=== PATIENT | female | born 1985 | race Caucasian/White ===

== ENCOUNTER 2017-05-10 18:37 | Emergency (ER) | payer MEDICAID ==
[~2017-05-10] VITALS: Ht 154.9 cm; Wt 68.0 kg
[2017-05-10 18:48] VITALS: Ht 154.9 cm; Wt 68.0 kg
[2017-05-10 22:53] VITALS: BP 124/74
== END 2017-05-10 22:53 | disposition home or self-care (01) ==
LOC: ED 18:37
DX: S39.012A Strain of muscle, fascia and tendon of lower back, initial encounter (principal); G43.909 Migraine, unspecified, not intractable, without status migrainosus; W01.0XXA Fall on same level from slipping, tripping and stumbling without subsequent striking against object, initial encounter; Y93.89 Activity, other specified; Y92.89 Other specified places as the place of occurrence of the external cause; Y99.8 Other external cause status
CPT/HCPCS: J1885

== ENCOUNTER 2018-04-20 08:33 | Emergency (ER) | payer MEDICAID ==
[~2018-04-20] VITALS: Ht 165.1 cm; Wt 70.8 kg
[2018-04-20 08:44] VITALS: Ht 165.1 cm; Wt 70.8 kg
[2018-04-20 09:30] VITALS: BP 113/80
== END 2018-04-20 09:30 | disposition home or self-care (01) ==
LOC: ED 08:33
DX: J11.1 Influenza due to unidentified influenza virus with other respiratory manifestations (principal); G43.909 Migraine, unspecified, not intractable, without status migrainosus

== ENCOUNTER 2019-04-03 18:51 | Emergency (ER) | payer MEDICAID ==
[~2019-04-03] VITALS: Ht 160 cm; Wt 72.6 kg
[2019-04-03 19:19] VITALS: Ht 160 cm; Wt 72.6 kg
[2019-04-04 00:16] LABS: BASOPHIL % 1.6 % (0-2); PLATELET COUNT 291 x10^3mcL (130-400); RED CELL DISTRIBUTION WIDTH 13.8 % (11.5-14.5)
[2019-04-04 00:42] LABS: CALCIUM 9.1 mg/dL (8.5-10.1); CARBON DIOXIDE 27.6 mmol/L (21-32); CHLORIDE SERUM 104 mmol/L (98-107); CREATININE SERUM 0.6 mg/dL (0.6-1.0); GFR1 > 60 mL/min; GLUCOSE SERUM 100 mg/dL (74-106); SODIUM SERUM 140 mmol/L (136-145)
[2019-04-04 01:20] VITALS: BP 112/56
== END 2019-04-04 01:20 | disposition home or self-care (01) ==
LOC: ED 18:51
PROVIDERS: Emergency Medicine
DX: J11.1 Influenza due to unidentified influenza virus with other respiratory manifestations (principal); G43.909 Migraine, unspecified, not intractable, without status migrainosus
CPT/HCPCS: 36415